=== PATIENT | male | born 1935 | race Caucasian/White ===

== ENCOUNTER → 2018-03-14 | Outpatient (CLI) | payer MEDICARE, OTHER ==
[~2018-03-14] MED LIST: ASPI81TA87 PO; BENA5TAB26 PO; CARB-119 PO; CARV12.530 PO; DOCU250C90 PO; DOCU250C91 PO; ERGO2000 PO; FAMO-135 PO; FAMO20TA8 PO; FINA5TAB41 PO; ISOS60TA4 PO; LEVE750T10 PO; LEVO25TA9 PO; MAGN400C PO; METF-514 PO; PARO10TA89 PO; SIMV40TA5 PO; TAMS0.4C32 PO
[2018-03-14 10:58] VITALS: BP 116/68
== END | disposition home or self-care (01) ==
LOC: SRCNTR 10:45
PROVIDERS: ATTEND Internal Medicine Cardiovascular Disease
DX: I11.9 Hypertensive heart disease without heart failure (principal); I25.10 Atherosclerotic heart disease of native coronary artery without angina pectoris; E11.9 Type 2 diabetes mellitus without complications; E03.9 Hypothyroidism, unspecified; N40.0 Benign prostatic hyperplasia without lower urinary tract symptoms; I25.5 Ischemic cardiomyopathy; E78.5 Hyperlipidemia, unspecified; M19.90 Unspecified osteoarthritis, unspecified site; G40.909 Epilepsy, unspecified, not intractable, without status epilepticus; Z79.4 Long term (current) use of insulin; Z79.82 Long term (current) use of aspirin; Z86.73 Personal history of transient ischemic attack (TIA), and cerebral infarction without residual deficits; Z90.49 Acquired absence of other specified parts of digestive tract
CPT/HCPCS: G0463